=== PATIENT | female | born 1965 | race Caucasian/White ===

== ENCOUNTER → 2022-05-03 14:24 | Outpatient (CLI) | payer OTHER, MEDICAID, SELFPAY ==
--- NOTE | 2022-05-03 | DI.MG.S_ITS ---
BILATERAL DIGITAL SCREENING MAMMOGRAM 3D/2D WITH CAD: 05/03/2022 CLINICAL: Routine screening. Family history of breast cancer. Comparison is made to exams dated: 01/11/2020 mammogram, 11/28/2018 mammogram, and 10/31/2017 mammogram - outside location. There are scattered fibroglandular elements in both breasts. Current study was also evaluated with a Computer Aided Detection (CAD) system. No significant masses, calcifications, or other findings are seen in either breast. There has been no significant interval change. IMPRESSION: NEGATIVE There is no mammographic evidence of malignancy. A 1 year screening mammogram is recommended. This exam was interpreted at Station ID: [id number]. NOTE: For mammograms, a report in lay terms will be sent to the patient. Approximately 15% of breast malignancies will not be visualized mammographically. In the management of a palpable breast mass, a negative mammogram must not discourage biopsy of a clinically suspicious lesion. Electronically Signed By: Ankush hinton/sugar:05/03/2022 16:46:39 letter sent: Normal Exam ACR BI-RADS Category 1: Negative 3341F
== END ==
PROVIDERS: PCP Nurse Practitioner Family; Referring Provider Nurse Practitioner Family; Visit Provider Nurse Practitioner Family
DX: Z12.31 Encounter for screening mammogram for malignant neoplasm of breast (principal); Z80.3 Family history of malignant neoplasm of breast
CPT/HCPCS: 77063; 77067

== ENCOUNTER → 2024-04-01 12:16 | Outpatient (CLI) | payer OTHER, MEDICAID, SELFPAY ==
--- NOTE | 2024-04-01 12:17 | DI.MG.S_ITS ---
BILATERAL DIGITAL SCREENING MAMMOGRAM 3D/2D WITH CAD: 04/01/2024 CLINICAL: Routine screening. Family history of breast cancer. Comparison is made to exams dated: 05/03/2022 mammogram - [facility], 01/11/2020 mammogram, and 11/28/2018 mammogram - outside location. There are scattered areas of fibroglandular density in both breasts (category b / 25%-50% glandular tissue). Current study was also evaluated with a Computer Aided Detection (CAD) system. No significant masses, calcifications, or other findings are seen in either breast. There has been no significant interval change. IMPRESSION: NEGATIVE There is no mammographic evidence of malignancy. A 1 year screening mammogram is recommended. Based on the Tyrer Cuzick model (a risk assessment model) the patient's lifetime risk is 5.8% and her 10 year risk is 2.3%. According to the ACR, ACS, and NCCN guidelines, an annual breast MRI exam along with mammogram is recommended if the patient's lifetime risk is 20% or greater. This exam was interpreted at Station ID: [id number]. NOTE: For mammograms, a report in lay terms will be sent to the patient. Approximately 15% of breast malignancies will not be visualized mammographically. In the management of a palpable breast mass, a negative mammogram must not discourage biopsy of a clinically suspicious lesion. Electronically Signed By: Cyrstal Zambrano M.D., Ph.D. zonia/sugar:04/01/2024 13:09:44 letter sent: Normal Exam ACR BI-RADS Category 1: Negative 3341F
== END ==
LOC: MAMMO 12:16
PROVIDERS: PCP Family Medicine; Referring Provider Family Medicine; Visit Provider Family Medicine
DX: Z12.31 Encounter for screening mammogram for malignant neoplasm of breast (principal); Z80.3 Family history of malignant neoplasm of breast; R92.323 Mammographic fibroglandular density, bilateral breasts
CPT/HCPCS: 77063; 77067

== ENCOUNTER → 2025-11-05 14:04 | Outpatient (CLI) | payer OTHER, MEDICAID, SELFPAY ==
--- NOTE | 2025-11-05 14:06 | DI.ECHO.S_ITS ---
[facility] : : [address] : : [place] : : [id number] : : Phone: [phone] Echocardiogram Report + + :Name: SUSANNE FULTON Study Date: 11/05/2025 Height: 67 in : :[facility] ReadingLocation: Weight: 190 lb : : Gender: Female BSA: 2.0 m2 : :: 1965 Age: 60 yrs BP: 134/91 mmHg: :Reason For Study: PAF : :Ordering Physician: MUSTAPHA ADAN Performed By: Venkata March : :Referring: MUSTAPHA ADAN : + + Interpretation Summary - Normal LV contractility with EF > 60% and no WMA. No LVH. Normal diastolic function. - Normal RV contractility. - Normal chamber sizes. - No significant valvular abnormalities. - No obvious intracardiac shunts. - No obvious intracardiac masses/thrombi. - No hemodynamilcally significant pericardial effusion. - Low right sided filling pressures. Conclusion: Normal biventricular function without significant valvular abnormalities. Procedure: A two-dimensional transthoracic echocardiogram with color flow and Doppler was performed. The study quality was technically adequate. There is no prior echocardiogram noted for this patient. The heart rate ranged between 88-122 bpm during the study. Left Ventricle: The left ventricle is normal in size. Left ventricular wall thickness is at the upper limits of normal. Left ventricular systolic function is normal. The ejection fraction is estimated to be 55-60%. There are no focal wall motion abnormalities. Normal diastolic function. Right Ventricle: The right ventricle is normal in size and function. Atria: The left atrial size is normal. Right atrial size is normal. There is no Doppler evidence for an interatrial shunt. Mitral Valve: The mitral valve leaflets appear to open well. There is no mitral valve stenosis. There is trace mitral regurgitation. Aortic Valve: The aortic valve is trileaflet. The aortic valve opens well. There is no aortic valve stenosis. No aortic regurgitation is present. Tricuspid Valve: The tricuspid valve leaflets are thin and pliable. There is trace tricuspid regurgitation. The right ventricular systolic pressure is estimated to be at least 17 mmHg based on an estimated right atrial pressure of 3 mm Hg. Pulmonic Valve: The pulmonic valve is not well seen, but is grossly normal. There is trace pulmonic regurgitation. Great Vessels: Based on patients BSA of 2.0 m2, the aortic root at the area of the sinuses of Valsalva is within normal range with a max diameter of 3.7 cm. Based on patients BSA of 2.0 m2, the proximal ascending aorta is within normal range with a max diameter of 3.9 cm. The aortic arch is normal in size. The pulmonary artery is normal size. The IVC is of normal diameter and collapses greater than 50% with a sniff. This suggests a low right atrial pressure of 3 mm Hg. Pericardium/ Pleura There is no pericardial effusion. MMode/2D Measurements & Calculations LVIDd: 4.9 cm LVOT diam: 2.0 cm LVIDs: 3.4 cm Ao root diam: 3.7 cm FS: 31.1 % asc Aorta Diam: 3.9 cm IVSd: 1.0 cm Ao Arch Diam (Prox Trans): 2.9 cm LVPWd: 1.1 cm LV malik. diameter/BSA (cm/m^2): 2.5 LV sys. diameter/BSA (cm/m^2): 1.7 LA A2 area: 16.7 cm2 RA area: 10.5 cm2 LA A4 area: 13.5 cm2 IVC diam: 1.0 cm LA length (vol): 4.8 cm LA vol: 40.1 ml LA vol index: 20.3 ml/m2 RVD1 (basal): 2.8 cm RVD2 (mid): 2.4 cm TAPSE: 2.0 cm Doppler Measurements & Calculations Ao V2 max: 114.2 cm/sec LVOT Max Urban: 94.8 cm/sec Ao V2 mean: 77.0 cm/sec LV V1 max P.6 mmHg Ao max P.2 mmHg LV V1 VTI: 14.9 cm Ao mean P.8 mmHg LUIZ(I,D): 2.5 cm2 Ao V2 VTI: 18.5 cm LUIZ(V,D): 2.6 cm2 sev ratio: 0.81 LUIZ indexed to BSA (cm^2/m^2): 1.3 MV E max urban: 57.2 cm/sec TR max urban: 187.5 cm/sec MV A max urban: 58.0 cm/sec TR max P.1 mmHg MV E/A: 0.99 PA V2 max: 85.5 cm/sec Med Peak E' Urban: 7.0 cm/sec PA V2 mean: 65.6 cm/sec E/E' med: 8.2 PA mean P.9 mmHg Lat Peak E' Urban: 9.9 cm/sec PA pr(Accel): 46.9 mmHg E/E' lat: 5.8 E/e' average: 7.0 MV dec time: 0.19 sec SV(LVOT): 46.5 ml Qp/Qs (V,Ao): 1.0/5.4 Qp/Qs (V,LVOT): 1.0/1.3 Reading Physician:CHARLES
--- NOTE | 2025-11-05 14:07 | DI.NM.S_ITS ---
PROCEDURE: NM EXERCISE TREADMILL NON NUC COMPARISON: None INDICATIONS: PAF FINDINGS: Rest ECG sinus rhythm, 73 bpm. Blood pressure 130/80. Coleman protocol 9:19, maximum heart rate 167 bpm (105% peak predicted) however the patient went in to SVT approximately 1 minute prior to the end of exercise at a rate of 208 bpm, peak blood pressure 180/100, 9.3 METS, MICHELE -38%. Exercise ECG sinus tachycardia and SVT, possibly [address] segment depressions leads II, III, aVF and V5 to V6 however at peak exercise and with the SVT there is baseline artifact. The patient did not report exercise-induced chest discomfort. IMPRESSION: Abnormal study. Exercise-induced ST segment changes consistent with ischemia and SVT identified. Hypertensive response. Good exercise capacity. Dictated by: Kathleen Casillas D.O. on 11/05/2025 at 17:01 Approved by: Kathleen Casillas D.O. on 11/05/2025 at 17:14
== END ==
LOC: NUCM 14:05
PROVIDERS: PCP Physician Assistant; Referring Provider Internal Medicine; Visit Provider Internal Medicine
DX: I48.0 Paroxysmal atrial fibrillation (principal); R94.39 Abnormal result of other cardiovascular function study
CPT/HCPCS: 93017; 93306